=== PATIENT | female | born 1965 | race Caucasian/White ===

== ENCOUNTER → 2023-10-09 15:39 | Outpatient (REF) | payer BC, SELFPAY | LOC: WDC 15:39 | PROVIDERS: ATTENDING PHYSICIAN Physician Assistant Medical | DX: Z12.31 Encounter for screening mammogram for malignant neoplasm of breast (principal) | CPT/HCPCS: 77063; 77067 ==

== ENCOUNTER → 2024-11-18 13:39 | Outpatient (REF) | payer OTHER, SELFPAY | LOC: WDC 13:39 | PROVIDERS: ATTENDING PHYSICIAN Physician Assistant Medical | DX: Z12.31 Encounter for screening mammogram for malignant neoplasm of breast (principal) | CPT/HCPCS: 77063; 77067 ==